=== PATIENT | female | born 1985 | race Hispanic/Latino ===

== ENCOUNTER 2016-09-24 14:18 | Emergency (ER) | payer MEDICAID ==
[2016-09-24 16:36] LABS: Bilirubin,Urine NEG (Negative); Blood,Urine NEG (Negative); Ketones,Urine NEG (Negative); Leukocyte Esterase,Urine NEG (Negative); Nitrite,Urine NEG (Negative); Protein,Urine <15 mg/dL mg/dL (Negative); RBC,Urine < 1.0 /HPF (0.0-6.0); Urobilinogen,Urine < 2.0 mg/dL (<2.0); WBC,Urine < 1.0 /HPF (0.0-6.0)
--- NOTE | 2016-09-24 21:12 | Emergency Department Report ---
ED Female HPI - General Chief complaint: Vaginal Bleeding Stated complaint: VAGINAL BLEEDING/8 WKS Time Seen by Provider: 09/24/16 21:10 Source: patient, RN notes reviewed Mode of arrival: Ambulatory Limitations: No Limitations - History of Present Illness Initial comments: This is a 30-year-old female, previously unknown to me. She is 2, para 0. Last menstrual period is July 28. Past medical history includes tubal , which was terminated with methotrexate, she does not remember the laterality. Also has a history of obesity, and polycystic ovarian syndrome. Presents to the ER with painless vaginal bleeding. Started today. Atraumatic. No irritative or obstructive urinary symptoms. Mild nausea, no vomiting. No right lower quadrant pain. No fevers or chills. No chest pain or shortness of breath. MD Complaint: vaginal bleeding -: Gradual Severity: mild Consistency: now resolved Improves with: none Worsens with: none Are you Now?: Yes Associated Symptoms: vaginal bleeding - Related Data Sexually active: Yes Home Medications Medication Instructions Recorded Confirmed Last Taken Metformin HCl [Fortamet ER] 1,000 mg PO QDAY 07/02/16 09/24/16 06/30/16 Previous Rx's Medication Instructions Recorded Last Taken Type Doxylamine/Pyridoxine HCl 1 each PO QHS PRN #30 tablet. 09/25/16 Unknown Rx [Mahamed Escalante 10-10 mg Tablet] Vit W-Ca,Fe,FA(<1 mg) 1 each PO QDAY #30 tablet 09/25/16 Unknown Rx [ Vitamins] Allergies Allergy/AdvReac Type Severity Reaction Status Date / Time Iodinated Contrast Media - Allergy Rash Verified 07/02/16 21:27 IV Dye Penicillins Allergy Hives Verified 03/13/16 01:14 ED Review of Systems ROS: Stated complaint: VAGINAL BLEEDING/8 WKS Other details as noted in HPI Constitutional: denies: fever, malaise, weakness Eyes: denies: eye discharge, vision change ENT: denies: epistaxis, congestion Respiratory: denies: cough, shortness of breath, wheezing Cardiovascular: denies: chest pain, palpitations Gastrointestinal: denies: abdominal pain, nausea, diarrhea Genitourinary: other (vaginal bleeding) Musculoskeletal: denies: back pain, arthralgia, myalgia Skin: denies: rash, lesions, pruritus Neurological: denies: headache, weakness, paresthesias ED Past Medical Hx - Past Medical History Additional medical history: Abd. pain, Gallstones, Polycystic ovarian disease - Surgical History Additional Surgical History: rt great toe surgery - Social History Smoking Status: Unknown if ever smoked Substance Use Type: None - Medications Home Medications: Home Medications Medication Instructions Recorded Confirmed Last Taken Type Metformin HCl [Fortamet ER] 1,000 mg PO QDAY 07/02/16 09/24/16 06/30/16 History Doxylamine/Pyridoxine HCl 1 each PO QHS PRN #30 tablet. 09/25/16 Unknown Rx [Diclegis Dr 10-10 mg Tablet] Vit W-Ca,Fe,FA(<1 mg) 1 each PO QDAY #30 tablet 09/25/16 Unknown Rx [ Vitamins] ED Physical Exam - General Limitations: No Limitations General appearance: alert, in no apparent distress - Head Head exam: Present: atraumatic, normocephalic - Eye Eye exam: Present: normal appearance, EOMI. Absent: nystagmus - ENT ENT exam: Present: normal exam, normal orophraynx, mucous membranes moist, normal external ear exam - Neck Neck exam: Present: normal inspection, full ROM. Absent: tenderness, meningismus - Respiratory Respiratory exam: Present: normal lung sounds bilaterally. Absent: respiratory distress, wheezes, rales, rhonchi, stridor, chest wall tenderness - Cardiovascular Cardiovascular Exam: Present: regular rate, normal rhythm, normal heart sounds. Absent: bradycardia, tachycardia, irregular rhythm, systolic murmur, diastolic murmur, rubs, gallop - GI/Abdominal GI/Abdominal exam: Present: soft, normal bowel sounds. Absent: distended, tenderness, guarding, rebound, rigid, pulsatile mass - External exam: Present: normal external exam Speculum exam: Present: normal speculum exam Bi-manual exam: Present: normal bi-manual exam, other (escorted by KEARA FITZGERALD) . Absent: cervical motion tendernes, adnexal tenderness, adnexal mass, uterine enlargement, uterine tenderness - Extremities Exam Extremities exam: Present: normal inspection, full ROM, normal capillary refill. Absent: tenderness, pedal edema, joint swelling, calf tenderness - Back Exam Back exam: Present: normal inspection, full ROM. Absent: tenderness, CVA tenderness (R), CVA tenderness (L), muscle spasm, paraspinal tenderness, vertebral tenderness - Neurological Exam Neurological exam: Present: alert, oriented X3, normal gait, other (Extraocular movements intact. Tongue midline. No facial droop. Facial sensation intact to light touch in the V1, V2, V3 distribution bilaterally. 5 and 5 strength in 4 extremities.. Sensation is intact to light touch in 4 extremities.). Absent : motor sensory deficit - Psychiatric Psychiatric exam: Present: normal affect, normal mood - Skin Skin exam: Present: warm, dry, intact, normal color. Absent: rash ED Course Vital Signs 09/24/16 09/24/16 09/24/16 14:40 21:25 21:30 Temperature 98.4 F 98.6 F Pulse Rate 84 85 Respiratory 18 20 20 Rate Blood Pressure 153/95 Blood Pressure 141/77 [Right] O2 Sat by Pulse 100 100 100 Oximetry - Reevaluation(s) Reevaluation #1: 09/25/16 00:21 Differential diagnosis: Miscarriage, ectopic , threatened miscarriage, urinary tract infection Assessment and plan: 30-year-old female with confirmed intrauterine on ultrasound, with resolved vaginal bleeding, most likely consistent with threatened miscarriage. She is afebrile with reassuring vital signs, with the exception of elevated blood pressure. She reports that she has suggested follow -up in 2 weeks. She is instructed as to the need for close outpatient follow- up. Return precautions are excessively reviewed. ED Medical Decision Making - Lab Data Result diagrams: 09/24/16 21:36 Vital Signs 09/24/16 09/24/16 09/24/16 14:40 21:25 21:30 Temperature 98.4 F 98.6 F Pulse Rate 84 85 Respiratory 18 20 20 Rate Blood Pressure 153/95 Blood Pressure 141/77 [Right] O2 Sat by Pulse 100 100 100 Oximetry Lab Results 09/24/16 09/24/16 09/24/16 Range/Units 16:06 21:35 21:36 WBC 7.5 (4.5-11.0) K/mm3 RBC 4.58 (3.65-5.03) M/mm3 Hgb 11.8 (10.1-14.3) gm/dl Hct 35.6 (30.3-42.9) % MCV 78 L (79-97) fl MCH 26 L (28-32) pg MCHC 33 (30-34) % RDW 15.7 H (13.2-15.2) % Plt Count 283 (140-440) K/mm3 HCG, Quant (0-4) mIU/mL Urine Color Yellow (Yellow) Urine Turbidity Clear (Clear) Urine pH 6.0 (5.0-7.0) Ur Specific [place] 1.008 (1.003-1.030) Urine Protein <15 mg/dl (Negative) mg/dL Urine Glucose (UA) Neg (Negative) mg/dL Urine Ketones Neg (Negative) mg/dL Urine Blood Neg (Negative) Urine Nitrite Neg (Negative) Urine Bilirubin Neg (Negative) Urine Urobilinogen < 2.0 (<2.0) mg/dL Ur Leukocyte Esterase Neg (Negative) Urine WBC (Auto) < 1.0 (0.0-6.0) /HPF Urine RBC (Auto) < 1.0 (0.0-6.0) /HPF U Epithel Cells (Auto) < 1.0 (0-13.0) /HPF Urine HCG, Qual Positive A (Negative) Blood Type A POSITIVE Antibody Screen Negative 09/24/16 Range/Units 21:36 WBC (4.5-11.0) K/mm3 RBC (3.65-5.03) M/mm3 Hgb (10.1-14.3) gm/dl Hct (30.3-42.9) % MCV (79-97) fl MCH (28-32) pg MCHC (30-34) % RDW (13.2-15.2) % Plt Count (140-440) K/mm3 HCG, Quant 24011 H (0-4) mIU/mL Urine Color (Yellow) Urine Turbidity (Clear) Urine pH (5.0-7.0) Ur Specific [place] (1.003-1.030) Urine Protein (Negative) mg/dL Urine Glucose (UA) (Negative) mg/dL Urine Ketones (Negative) mg/dL Urine Blood (Negative) Urine Nitrite (Negative) Urine Bilirubin (Negative) Urine Urobilinogen (<2.0) mg/dL Ur Leukocyte Esterase (Negative) Urine WBC (Auto) (0.0-6.0) /HPF Urine RBC (Auto) (0.0-6.0) /HPF U Epithel Cells (Auto) (0-13.0) /HPF Urine HCG, Qual (Negative) Blood Type Antibody Screen - Radiology Data Radiology results: report reviewed, image reviewed Transvaginal ultrasound demonstrates intrauterine , gestational age 7 weeks and 3 days. heartbeat 149 beats per minute. Yolk sac is present. Critical care attestation.: If time is entered above; I have spent that time in minutes in the direct care of this critically ill patient, excluding procedure time. ED Disposition Clinical Impression: Threatened miscarriage Disposition: DISCHARGED TO HOME OR SELFCARE Is pt being admited?: No Does the pt Need Aspirin: No Condition: Stable Instructions: Threatened Miscarriage (ED) Additional Instructions: Continue outpatient metformin. Take the vitamins and nausea medication as needed/directed. Please note that your blood pressure was elevated today. This should be followed up by an PURIFICATION DIRECTOR doctor within the next week to 10 days. Long-term complications of hypertension includes stroke, disability, seizures, loss of quality of life. Follow-up with an PURIFICATION DIRECTOR doctor within the next 7-10 days. Rest and avoid heavy lifting. Avoid strenuous physical activity. Avoid sexual activity until cleared by an PURIFICATION DIRECTOR doctor. Return to the ER right away with severe pain, intractable nausea or vomiting, bleeding more than 2 pads soaked through and through per hour, inability to tolerate liquid feeds. Referrals: PRIMARY CARE, [Primary Care Provider] - 3-5 Days [facility] [Provider Group] - 3-5 Days [facility] [Provider Group] - 3-5 Days [facility] [Provider Group] - 3-5 Days
[2016-09-24 22:49] LABS: Hematocrit 35.6 % (30.3-42.9); Hemoglobin 11.8 gm/dl (10.1-14.3); Mean Corpuscular HGB Conc 33 % (30-34); Mean Corpuscular Volume 78 fl (79-97); Platelet Count 283 K/mm3 (140-440); Red Blood Count 4.58 M/mm3 (3.65-5.03); Red Cell Distribution Width 15.7 % (13.2-15.2); White Blood Count 7.5 K/mm3 (4.5-11.0)
[2016-09-24 22:50] LABS: Mean Corpuscular Hemoglobin 26 pg (28-32)
--- NOTE | 2016-09-24 23:28 | Ultrasound Report ---
FINAL REPORT EXAM: US OB \T\lt; = 14 WEEKS FETUS HISTORY: vag bleed COMPARISON: None available. TECHNIQUE: Several real-time grayscale and color Doppler images were obtained. Transabdominal and transvaginal exam. FINDINGS: Uterus measures 12.6 x 5.1 x 6.0 centimeters. Right ovary is not visualized. Left ovary measures 4.4 x 4.1 x 3.7 centimeters. 2.8 centimeter left ovarian unilocular cyst which may reflect corpus luteum. Single live IUP. Estimated gestational age 7 weeks 3 days. Estimated delivery date May 10, 2017. heart rate 149 beats per minute. Yolk sac is present. IMPRESSION: Single live IUP. Estimated gestational age 7 weeks 3 days. Estimated delivery date May 10, 2017. No gross abnormality. Left ovarian cyst measuring 2.8 centimeters. This may reflect corpus luteum. Right ovary is not visualized.
--- NOTE | 2016-09-24 23:29 | Ultrasound Report ---
FINAL REPORT EXAM: US OB TRANSVAGINAL HISTORY: vag bleed COMPARISON: None available. TECHNIQUE: Several real-time grayscale and color Doppler images were obtained. Transabdominal and transvaginal exam. FINDINGS: Uterus measures 12.6 x 5.1 x 6.0 centimeters. Right ovary is not visualized. Left ovary measures 4.4 x 4.1 x 3.7 centimeters. 2.8 centimeter left ovarian unilocular cyst which may reflect corpus luteum. Single live IUP. Estimated gestational age 7 weeks 3 days. Estimated delivery date May 10, 2017. heart rate 149 beats per minute. Yolk sac is present. IMPRESSION: Single live IUP. Estimated gestational age 7 weeks 3 days. Estimated delivery date May 10, 2017. No gross abnormality. Left ovarian cyst measuring 2.8 centimeters. This may reflect corpus luteum. Right ovary is not visualized.
[2016-09-25 00:40] VITALS: BP 139/76
== END 2016-09-25 00:50 | disposition home or self-care (01) ==
LOC: ED 14:18
DX: O20.0 Threatened abortion (principal); Z3A.08 8 weeks gestation of pregnancy; Z88.0 Allergy status to penicillin; Z91.041 Radiographic dye allergy status
CPT/HCPCS: 36415; 76801; 76817; 81001; 81025; 84702; 85027; 86850; 86900; 86901; 99284

== ENCOUNTER 2016-09-25 13:40 | Emergency (ER) | payer MEDICAID ==
[2016-09-25 14:13] LABS: Basophils % (Auto) 0.3 % (0.0-1.8); Eosinophils % (Auto) 0.1 % (0.0-4.3); Hematocrit 37.1 % (30.3-42.9); Mean Corpuscular HGB Conc 32 % (30-34); Mean Corpuscular Volume 78 fl (79-97); Platelet Count 299 K/mm3 (140-440); Red Blood Count 4.78 M/mm3 (3.65-5.03); Red Cell Distribution Width 15.2 % (13.2-15.2); White Blood Count 6.2 K/mm3 (4.5-11.0)
[2016-09-25 14:20] LABS: Mean Corpuscular Hemoglobin 25 pg (28-32)
[2016-09-25 14:27] LABS: Alanine Aminotransferase 147 units/L (7-56); Albumin 3.9 g/dL (3.9-5); Albumin/Globulin Ratio 1.1 %; Alkaline Phosphatase 120 units/L (35-129); Anion Gap 19 mmol/L; BUN/Creatinine Ratio 13.33; Bilirubin,Total 1.4 mg/dL (0.1-1.2); Blood Urea Nitrogen 8 mg/dL (7-17); Calcium 9.2 mg/dL (8.4-10.2); Carbon Dioxide 24 mmol/L (22-30); Chloride 99.9 mmol/L (98-107); Glucose 124 mg/dL (65-100); Lipase 26 units/L (13-60); Sodium 139 mmol/L (137-145); Total Protein 7.6 g/dL (6.3-8.2)
[2016-09-25 15:09] LABS: Bilirubin,Urine Moderate (Negative); Blood,Urine Negative (Negative); Ketones,Urine Trace mg/dL (Negative)
[2016-09-25 15:10] LABS: Leukocyte Esterase,Urine Negative (Negative); Nitrite,Urine Negative (Negative); PH,Urine 5.5 (5.0-7.0); Protein,Urine <15 mg/dL mg/dL (Negative)
[2016-09-25 15:12] LABS: Mucus,Urine FEW /HPF
--- NOTE | 2016-09-25 20:10 | Emergency Department Report ---
ED Abdominal Pain HPI - General Chief Complaint: Abdominal Pain Stated Complaint: ABD PAIN Time Seen by Provider: 09/25/16 20:06 Source: patient, RN notes reviewed, old records reviewed Mode of arrival: Ambulatory Limitations: No Limitations - History of Present Illness Initial Comments: This is a 30-year-old female. I saw her yesterday for threatened miscarriage. Please my medical records from yesterday for the full details of her history and physical. Patient reports that after she was discharged, she went to [facility], and had not shows. She reports that shortly after consuming the spicy and creamy nachos, she developed her typical symptoms of biliary colic. They include epigastric and right upper quadrant pain. Patient has no fevers or chills. Positive nausea. No irritative or obstructive urinary symptoms. No lower abdominal pain. Reports vaginal bleeding has since resolved. Patient was seen for similar symptoms last year in June. She has been referred to general surgery multiple times, but has not followed up. Previous ultrasounds have demonstrated biliary ductal dilatation, elevated total bilirubin, elevated alkaline phosphatase, elevated liver function tests. MD Complaint: abdominal pain -: Gradual, hour(s) Location: RUQ Migration to: no migration Severity: mild Quality: aching Consistency: now resolved Improves With: medication Worsens With: eating Context: possible food poisoning Associated Symptoms: nausea. denies: chills, constipation, dysuria, hematemesis , hematochezia, melena, hematuria, anorexia, syncope - Related Data LMP (females 10-50): Home Medications Medication Instructions Recorded Confirmed Last Taken Metformin HCl [Fortamet ER] 1,000 mg PO QDAY 07/02/16 09/24/16 06/30/16 Previous Rx's Medication Instructions Recorded Last Taken Type Clindamycin [Clindamycin CAP] 300 mg PO Q6H #20 capsule 09/25/16 Unknown Rx Doxylamine/Pyridoxine HCl 1 each PO QHS PRN #30 tablet. 09/25/16 Unknown Rx [Mahamed Escalante 10-10 mg Tablet] Vit W-Ca,Fe,FA(<1 mg) 1 each PO QDAY #30 tablet 09/25/16 Unknown Rx [ Vitamins] Allergies Allergy/AdvReac Type Severity Reaction Status Date / Time Iodinated Contrast Media - Allergy Rash Verified 07/02/16 21:27 IV Dye Penicillins Allergy Hives Verified 03/13/16 01:14 ED Review of Systems ROS: Stated complaint: ABD PAIN Other details as noted in HPI Constitutional: denies: malaise Eyes: denies: vision change ENT: denies: epistaxis Respiratory: denies: cough Gastrointestinal: abdominal pain, nausea Genitourinary: denies: urgency, dysuria Musculoskeletal: denies: back pain Skin: denies: lesions Neurological: denies: weakness ED Past Medical Hx - Past Medical History Additional medical history: Abd. pain, Gallstones, Polycystic ovarian disease - Surgical History Additional Surgical History: rt great toe surgery - Social History Smoking Status: Never Smoker Substance Use Type: None - Medications Home Medications: Home Medications Medication Instructions Recorded Confirmed Last Taken Type Metformin HCl [Fortamet ER] 1,000 mg PO QDAY 07/02/16 09/24/16 06/30/16 History Clindamycin [Clindamycin CAP] 300 mg PO Q6H #20 capsule 09/25/16 Unknown Rx Doxylamine/Pyridoxine HCl 1 each PO QHS PRN #30 tablet. 09/25/16 Unknown Rx [Mahamed Escalante 10-10 mg Tablet] Vit W-Ca,Fe,FA(<1 mg) 1 each PO QDAY #30 tablet 09/25/16 Unknown Rx [ Vitamins] ED Physical Exam - General Limitations: No Limitations General appearance: alert, in no apparent distress, obese - Head Head exam: Present: atraumatic, normocephalic - Eye Eye exam: Present: normal appearance, EOMI - ENT ENT exam: Present: normal exam, normal orophraynx, mucous membranes moist, normal external ear exam - Neck Neck exam: Present: normal inspection, full ROM. Absent: tenderness - Respiratory Respiratory exam: Present: normal lung sounds bilaterally. Absent: respiratory distress, wheezes, rales, rhonchi, stridor, chest wall tenderness, accessory muscle use - Cardiovascular Cardiovascular Exam: Present: regular rate, normal rhythm, normal heart sounds. Absent: bradycardia, tachycardia, irregular rhythm, systolic murmur, diastolic murmur, rubs, gallop - GI/Abdominal GI/Abdominal exam: Present: soft, tenderness (ears minimal right upper quadrant tenderness to deep palpation. There is a negative [place] sign. There is no rebound or guarding. There is no peritoneal signs.), normal bowel sounds. Absent: distended, guarding, rebound, rigid - Extremities Exam Extremities exam: Present: normal inspection, full ROM, normal capillary refill. Absent: tenderness, pedal edema, joint swelling, calf tenderness - Back Exam Back exam: Present: normal inspection, full ROM. Absent: tenderness, CVA tenderness (R), CVA tenderness (L), muscle spasm, paraspinal tenderness, vertebral tenderness - Neurological Exam Neurological exam: Present: alert, oriented X3, normal gait, other (Extraocular movements intact. Tongue midline. No facial droop. Facial sensation intact to light touch in the V1, V2, V3 distribution bilaterally. 5 and 5 strength in 4 extremities.. Sensation is intact to light touch in 4 extremities.). Absent : motor sensory deficit - Psychiatric Psychiatric exam: Present: normal affect, normal mood - Skin Skin exam: Present: warm, dry, intact, normal color. Absent: rash ED Course Vital Signs 09/25/16 09/25/16 13:45 21:10 Temperature 98.0 F Pulse Rate 78 80 Respiratory 18 18 Rate Blood Pressure 144/76 Blood Pressure 142/72 [Left] O2 Sat by Pulse 98 98 Oximetry - Reevaluation(s) Reevaluation #1: 09/25/16 22:53 Differential diagnosis: Biliary colic, cholecystitis, transaminitis, incidental Assessment and plan: 30-year-old female who had absolutely no right upper quadrant abdominal pain or tenderness yesterday, who went home, and ate nachos, and subsequently developed classic biliary colic. Her ultrasound demonstrates chronic findings, but no evidence of acute inflammation. She has stable chronic dilatation of the common bile duct, which has been present since at least June 2016. She has nonspecific elevation in her transaminases, but they're less than on prior values, she has a normal alkaline phosphatase, and she has a slightly elevated total bilirubin. She is afebrile with reassuring vital signs, tolerating liquid feeds, and feels improved on my repeat examination. Given chronicity of findings, clinical improvement, I don't believe patient requires admission at this time. She is instructed to follow up with outpatient general surgeon. I specifically discuss her case with the general surgeon on-call, Dr. Barraza. He reported that he would see the patient the office tomorrow or the next day, and make further outpatient arrangements. He did recommend antibiotics. He reports he will make a determination and coordinate outpatient MRCP if he deems it necessary. 09/25/16 23:00 ED Medical Decision Making - Lab Data Result diagrams: 09/25/16 13:55 09/25/16 13:55 Vital Signs 09/25/16 09/25/16 13:45 21:10 Temperature 98.0 F Pulse Rate 78 80 Respiratory 18 18 Rate Blood Pressure 144/76 Blood Pressure 142/72 [Left] O2 Sat by Pulse 98 98 Oximetry Labs 09/25/16 09/25/16 09/25/16 13:55 13:55 14:53 WBC 6.2 RBC 4.78 Hgb 12.0 Hct 37.1 MCV 78 L MCH 25 L MCHC 32 RDW 15.2 Plt Count 299 Lymph % (Auto) 11.3 L [place] % (Auto) 6.9 Eos % (Auto) 0.1 Baso % (Auto) 0.3 Lymph # 0.7 L [place] # 0.4 Eos # 0.0 Baso # 0.0 Seg Neutrophils % 81.4 H Seg Neutrophils # 5.1 Sodium 139 Potassium 4.0 Chloride 99.9 Carbon Dioxide 24 Anion Gap 19 BUN 8 Creatinine 0.6 L Estimated GFR > 60 BUN/Creatinine Ratio 13.33 Glucose 124 H Calcium 9.2 Total Bilirubin 1.4 H AST 173 H ALT 147 H Alkaline Phosphatase 120 Total Protein 7.6 Albumin 3.9 Albumin/Globulin Ratio 1.1 Lipase 26 Urine Color Rebecca Urine Turbidity Hazy Urine pH 5.5 Ur Specific [place] 1.025 Urine Protein <15 mg/dl Urine Glucose (UA) Negative Urine Ketones Trace Urine Blood Negative Urine Nitrite Negative Ur Reducing Substances Negative Urine Bilirubin Moderate Urine Ictotest Positive Urine Urobilinogen 1.0 Ur Leukocyte Esterase Negative Urine WBC (Auto) 2.0 Urine RBC (Auto) 3.0 U Epithel Cells (Auto) 9.0 Amorphous Crystals Few Urine Mucus Few - Radiology Data Radiology results: report reviewed, image reviewed abdominal right upper quadrant ultrasound shows known cholelithiasis, no pericholecystic fluid, chronically dilated common bile duct, no secondary signs of acute inflammation. - Medical Decision Making extensive discussion was had with the patient regarding the importance of closer outpatient follow up with general surgery in the next 48 hours Critical care attestation.: If time is entered above; I have spent that time in minutes in the direct care of this critically ill patient, excluding procedure time. ED Disposition Clinical Impression: Biliary colic, High transaminase levels Disposition: DISCHARGED TO HOME OR SELFCARE Is pt being admited?: No Does the pt Need Aspirin: No Condition: Stable Instructions: Biliary Colic (ED) Additional Instructions: Avoid heavy and spicy foods. Take the antibiotic therapy as directed. follow up with the general surgeon within the next [address] Barraza is the local general surgeon. He is expecting you to contact his office tomorrow to arrange close follow-up. Not following up in a timely fashion may result in infection, hepatitis, and can be dangerous to yourself and to the . Return to the ER right away with new pain, worsening pain, migration of pain, fevers or chills, intractable nausea or vomiting, inability to tolerate liquid feeds. Prescriptions: Clindamycin [Clindamycin CAP] 300 mg PO Q6H #20 capsule Referrals: PRIMARY CARE, [Primary Care Provider] - 3-5 Days SHELLEY BARRAZA MD [Staff Physician] - 3-5 Days
--- NOTE | 2016-09-25 21:05 | Ultrasound Report ---
FINAL REPORT EXAM: US ABDOMEN LIMITED HISTORY: abd pain hx of gall stones COMPARISON: Abdominal ultrasound from June 2016. TECHNIQUE: Several real-time grayscale and color Doppler images were obtained. FINDINGS: Visualized aorta is normal in caliber. The right kidney measures 11.8 centimeters in length. No gross focal renal lesion or hydronephrosis. Cholelithiasis. No gallbladder wall thickening or pericholecystic fluid. Mild fatty infiltration of the liver. The common bile duct measures up to 9-10 millimeters. On prior exam the common bile duct measures up to 10-11 millimeters. No obstructive lesion identified along the course of the common bile duct. Visualized pancreas is grossly unremarkable. IMPRESSION: Cholelithiasis without secondary signs of acute inflammation. Stable dilatation the common bile duct measuring 10 millimeters. Correlation with bilirubin suggested.
[2016-09-25] MEDS ORDERED: ZOFRAN IV ONE (21:55)
[2016-09-25] MEDS ORDERED: MORPHINE IV ONE (21:55)
[2016-09-25] MEDS ORDERED: D5/0.45NS 1,000 ML IV SCH (22:00)
[2016-09-25 22:30] VITALS: BP 142/72
== END 2016-09-25 23:46 | disposition home or self-care (01) ==
LOC: ED 13:40
DX: K80.50 Calculus of bile duct without cholangitis or cholecystitis without obstruction (principal); R74.0 Nonspecific elevation of levels of transaminase and lactic acid dehydrogenase [LDH]; Z88.0 Allergy status to penicillin; Z91.041 Radiographic dye allergy status
CPT/HCPCS: 36415; 76705; 80053; 81001; 83690; 85025; 96361; 96374; 96375; 99284; J2270; J2405

== ENCOUNTER 2016-09-26 18:18 | Emergency (ER) | payer MEDICAID ==
[2016-09-26 21:28] LABS: Basophils % (Auto) 0.4 % (0.0-1.8); Eosinophils % (Auto) 0.7 % (0.0-4.3); Hematocrit 35.7 % (30.3-42.9); Hemoglobin 11.5 gm/dl (10.1-14.3); Mean Corpuscular HGB Conc 32 % (30-34); Mean Corpuscular Volume 79 fl (79-97); Platelet Count 309 K/mm3 (140-440); Red Blood Count 4.52 M/mm3 (3.65-5.03); Red Cell Distribution Width 15.7 % (13.2-15.2); White Blood Count 8.9 K/mm3 (4.5-11.0)
[2016-09-26 21:31] LABS: Mean Corpuscular Hemoglobin 25 pg (28-32)
[2016-09-27 03:04] VITALS: BP 121/63
[2016-09-27] MEDS ORDERED: NORCO 5/325 PO ONE (03:35)
--- NOTE | 2016-09-27 03:40 | Emergency Department Report ---
ED HPI - General Chief complaint: Vaginal Bleeding Stated complaint: MISCARRIAGE Time Seen by Provider: 09/27/16 03:12 Source: patient, family Mode of arrival: Ambulatory Limitations: No Limitations - History of Present Illness Initial comments: This is a 30-year-old female who reports G-tube is P0 Ab1 due to ectopic . She is 7 weeks and 5 days by ultrasound done 2 nights ago. This is actually her third day in a row coming to the emergency department. She came to nights ago due to sensation of not feeling like she was . She had workup demonstrating hormone levels in the appropriate range as well as a normal IUP by ultrasound. She had no other specific complaints at time. HEENT back yesterday to the ED due to right upper quadrant tenderness. She was noted to have some gallstones and biliary colic. She returns today due to moderate amount of vaginal bleeding today she describes it being less than a period but persists for the last 12 hours. She denies any associated pain with this. Eyes any dysuria denies any vaginal discharge otherwise. MD Complaint: vaginal bleeding Onset/Timin -: Sudden, days(s) Radiation: none Severity: mild Consistency: constant Improves with: none Worsens with: none Associated symptoms: abdominal pain (right upper quadrant from gallbladder.) - Related Data Home Medications Medication Instructions Recorded Confirmed Last Taken Metformin HCl [Fortamet ER] 1,000 mg PO QDAY 07/02/16 09/27/16 06/30/16 Previous Rx's Medication Instructions Recorded Last Taken Type Clindamycin [Clindamycin CAP] 300 mg PO Q6H #20 capsule 09/25/16 Unknown Rx Doxylamine/Pyridoxine HCl 1 each PO QHS PRN #30 tablet. 09/25/16 Unknown Rx [Mahamed Escalante 10-10 mg Tablet] Vit W-Ca,Fe,FA(<1 mg) 1 each PO QDAY #30 tablet 09/25/16 09/26/16 Rx [ Vitamins] HYDROcodone/APAP 5-325 [[place] 1 each PO Q6HR PRN #20 tablet 09/27/16 Unknown Rx 5-325 mg TAB] Allergies Allergy/AdvReac Type Severity Reaction Status Date / Time Iodinated Contrast Media - Allergy Rash Verified 07/02/16 21:27 IV Dye Penicillins Allergy Hives Verified 03/13/16 01:14 ED Review of Systems ROS: Stated complaint: MISCARRIAGE Other details as noted in HPI Constitutional: denies: chills, fever Eyes: denies: eye pain, eye discharge, vision change ENT: denies: ear pain, throat pain Respiratory: denies: cough, shortness of breath, wheezing Cardiovascular: denies: chest pain, palpitations Endocrine: no symptoms reported Gastrointestinal: abdominal pain. denies: nausea, diarrhea Genitourinary: other (vaginal bleeding). denies: urgency, dysuria, discharge Musculoskeletal: denies: back pain, joint swelling, arthralgia Skin: denies: rash, lesions Neurological: denies: headache, weakness, paresthesias Psychiatric: denies: anxiety, depression Hematological/Lymphatic: denies: easy bleeding, easy bruising ED Past Medical Hx - Past Medical History Previous Medical History?: Yes Additional medical history: Abd. pain, Gallstones, Polycystic ovarian disease miscarriage - Surgical History Past Surgical History?: Yes Additional Surgical History: rt great toe surgery - Social History Smoking Status: Never Smoker Substance Use Type: None - Medications Home Medications: Home Medications Medication Instructions Recorded Confirmed Last Taken Type Metformin HCl [Fortamet ER] 1,000 mg PO QDAY 07/02/16 09/27/16 06/30/16 History Clindamycin [Clindamycin CAP] 300 mg PO Q6H #20 capsule 09/25/16 09/27/16 Unknown Rx Doxylamine/Pyridoxine HCl 1 each PO QHS PRN #30 tablet. 09/25/16 09/27/16 Unknown Rx [Mahamed Dr 10-10 mg Tablet] Vit W-Ca,Fe,FA(<1 mg) 1 each PO QDAY #30 tablet 09/25/16 09/27/1609/26 Rx [ Vitamins] HYDROcodone/APAP 5-325 [[place] 1 each PO Q6HR PRN #20 tablet 09/27/16 Unknown Rx 5-325 mg TAB] ED Physical Exam - General Limitations: No Limitations General appearance: alert, in no apparent distress, obese - Head Head exam: Present: atraumatic, normocephalic - Eye Eye exam: Present: normal appearance - ENT ENT exam: Present: mucous membranes moist - Neck Neck exam: Present: normal inspection - Respiratory Respiratory exam: Present: normal lung sounds bilaterally. Absent: respiratory distress - Cardiovascular Cardiovascular Exam: Present: regular rate, normal rhythm. Absent: systolic murmur, diastolic murmur, rubs, gallop - GI/Abdominal GI/Abdominal exam: Present: soft, tenderness (RUQ), normal bowel sounds. Absent : guarding, rebound - Bi-manual exam: Present: uterine enlargement (cw dates), other (long closed thick cervix. Small amount of bright red blood noted on the glove.). Absent: cervical motion tendernes, adnexal tenderness, uterine tenderness - Extremities Exam Extremities exam: Present: normal inspection - Back Exam Back exam: Present: normal inspection - Neurological Exam Neurological exam: Present: alert, oriented X3 - Psychiatric Psychiatric exam: Present: normal affect, normal mood - Skin Skin exam: Present: warm, dry, intact, normal color. Absent: rash ED Course Vital Signs 09/26/16 09/27/16 09/27/16 20:18 03:02 04:05 Temperature 99.1 F 98.1 F Pulse Rate 75 71 Respiratory 16 18 20 Rate Blood Pressure 147/83 Blood Pressure 121/63 [Left] O2 Sat by Pulse 100 99 Oximetry - Reevaluation(s) Reevaluation #1: 09/27/16 06:19 Bedside ultrasound was performed. I was again able to demonstrate an IUP with heart tones in the once 160s. I did inform the patient that though I could see heart tones her amount of bleeding and persistence of bleeding is concerning for possible threatened miscarriage. Repeat hormone levels today are appropriately elevated compared to 2 days ago. I did give the patient prescription for repeat hormones to be done in 3 days' time. She is not having any lower abdominal pain with this. Her only abdominal pain is due to her biliary colic. I see no other precipitating or concerning factors associated with her. She has OB follow-up. I encouraged her to try to bump up at appointment. ED Medical Decision Making - Lab Data Result diagrams: 09/26/16 20:38 Critical care attestation.: If time is entered above; I have spent that time in minutes in the direct care of this critically ill patient, excluding procedure time. ED Disposition Clinical Impression: Threatened miscarriage in early Disposition: DISCHARGED TO HOME OR SELFCARE Is pt being admited?: No Does the pt Need Aspirin: No Condition: Stable Instructions: Threatened Miscarriage (ED) Additional Instructions: Your hormone levels 2 days ago were [address]. [place] [address]012 today. Get the repeat hcg test done on . Your hormone levels should go up at least several thousand by then. If your hormone levels are dropping then this means you will miscarry. If they are rising and you stop bleeding then this is a good sign. Return to the ED if you have worsening pains or severe bleeding. Prescriptions: HYDROcodone/APAP 5-325 [[place] 5-325 mg TAB] 1 each PO Q6HR PRN #20 tablet PRN Reason: Pain Referrals: PRIMARY CARE, [Primary Care Provider] - 3-5 Days Time of Disposition: 03:40
[2016-09-27 03:49] LABS: Bacteria,Urine 1+ /HPF (Negative); Bilirubin,Urine NEG (Negative); Blood,Urine LG (Negative); Ketones,Urine 20 mg/dL (Negative); Leukocyte Esterase,Urine NEG (Negative); Mucus,Urine FEW /HPF; Nitrite,Urine NEG (Negative); Protein,Urine <15 mg/dL mg/dL (Negative); Uric Acid Crystals,Urine 1+; Urobilinogen,Urine < 2.0 mg/dL (<2.0)
== END 2016-09-27 04:54 | disposition home or self-care (01) ==
LOC: ED 18:18
DX: O20.0 Threatened abortion (principal); Z3A.01 Less than 8 weeks gestation of pregnancy
CPT/HCPCS: 36415; 81001; 84702; 85025; 86850; 86900; 86901; 99283

== ENCOUNTER 2016-09-29 09:15 | Outpatient (CLI) | payer MEDICAID | END 2016-09-29 09:16 | disposition home or self-care (01) | LOC: LAB 09:15 | PROVIDERS: ATTEND Emergency Medicine | DX: O20.0 Threatened abortion (principal); Z3A.00 Weeks of gestation of pregnancy not specified | CPT/HCPCS: 36415; 84702 ==

== ENCOUNTER 2016-12-21 18:43 | Outpatient (CLI) | payer OTHER, MEDICAID ==
[2016-12-21] MEDS ORDERED: LACTATED RINGERS 500 ML IV ONE (19:12)
[2016-12-21 19:25] VITALS: BP 106/49
[2016-12-21 20:07] LABS: Bilirubin,Urine NEG (Negative); Blood,Urine NEG (Negative); Ketones,Urine NEG (Negative); Leukocyte Esterase,Urine NEG (Negative); Mucus,Urine FEW /HPF; Nitrite,Urine NEG (Negative); Protein,Urine <15 mg/dL mg/dL (Negative); Urobilinogen,Urine < 2.0 mg/dL (<2.0)
--- NOTE | 2016-12-21 21:41 | Ultrasound Report ---
FINAL REPORT EXAM: US OB \T\gt; = 14 WEEKS FETUS HISTORY: fall COMPARISONS: 09/24/2016, 09/25/2016 FINDINGS: Limited transabdominal 2nd trimester ultrasound Single living intrauterine in breech presentation with recorded cardiac activity of 135 beats per minute. Anterior placenta without focal abnormality. The inferior placental tip is well away from the region of the internal cervical os. Subjectively normal amniotic fluid volume. The cervix appears closed and measures 5 centimeters in length. Imaged portion of the anatomy is grossly unremarkable. The brain, four-chamber heart, and abdominal umbilical cord insertion are specifically suboptimally visualized. Biparietal diameter is 4.8 cm. Head circumference is 18.2 cm. Abdominal circumference is 15.7 cm. Femoral length is 3.1 cm. Composite measurements correspond to estimated gestational age of 20 weeks 3 days, which is concordant with prior established dating. IMPRESSION: Single living intrauterine without evident acute complication, as detailed above. Consider additional imaging for worsening/persistent symptoms.
== END 2016-12-21 21:55 | disposition home or self-care (01) ==
LOC: TRG 18:43
PROVIDERS: ATTEND Obstetrics & Gynecology
DX: O32.1XX0 Maternal care for breech presentation, not applicable or unspecified (principal); O47.02 False labor before 37 completed weeks of gestation, second trimester; Z91.81 History of falling; Z3A.20 20 weeks gestation of pregnancy
CPT/HCPCS: 59025; 76805; 81001

== ENCOUNTER 2020-09-10 07:57 | Outpatient (CLI) | payer MEDICAID ==
[2020-09-10 08:59] LABS: Blood Urea Nitrogen 13 mg/dL (7-17); Calcium 9.7 mg/dL (8.4-10.2); Hemolysis Index 0
[2020-09-10] MEDS ORDERED: NITROGLYCERIN 0.4 MG TAB SUBL SL ONE (09:00)
[2020-09-10 09:08] LABS: BUN/Creatinine Ratio 19
[2020-09-10] MEDS ORDERED: ATROPINE 0.1% (1 MG/10 ML) CARDIAC SYRINGE ONE (09:22)
[2020-09-10] MEDS ORDERED: METOPROLOL TARTRATE 5 MG/5 ML INJ IV ONE ×2 (09:24→11:16)
[2020-09-10] MEDS ORDERED: METOPROLOL TARTRATE 50 MG TAB PO SCH (10:00)
[2020-09-10 10:45] VITALS: BP 115/65
--- NOTE | 2020-09-10 12:40 | Cat Scan Report ---
CT angio heart stru/morph/func INDICATION: abnormal stress test, cp. TECHNIQUE: Axial imaging was performed through the heart after IV administration of 100 mL Visipaque 320 contras t. 3 plane MIP reformats were produced. All CT scans at this location are performed using CT dose red uction for ALARA by means of automated exposure control. COMPARISON: None available. FINDINGS: Image quality is degraded by quantum mottle artifact. RIGHT CORONARY ARTERY: No significant abnormality. LEFT CORONARY ARTERY: No significant abnormality. LEFT CIRCUMFLEX: No significant abnormality. LAD:No significant abnormality. POSTERIOR DESCENDING ARTERY:No significant abnormality. AORTA: No significant abnormality. PULMONARY ARTERIES:No significant abnormality. HEART:No significant abnormality. MEDIASTINUM:No significant abnormality. LUNGS:No significant abnormality. BONES:No significant abnormality. ADDITIONAL FINDINGS:None. IMPRESSION: 1. No significant abnormality is identified. However, image quality is degraded by artifact. Signer Name: Roque Ambrocio MD Signed: 09/10/2020 12:33 PM Workstation Name: [id number]
== END 2020-09-10 07:58 | disposition home or self-care (01) ==
LOC: CATHLABREC 07:57
PROVIDERS: ATTEND Internal Medicine Cardiovascular Disease
DX: R07.89 Other chest pain (principal); R94.39 Abnormal result of other cardiovascular function study
CPT/HCPCS: 36415; 75574; 80048; Q9967; J0461

== ENCOUNTER 2021-02-01 16:49 | Emergency (ER) | payer MEDICAID ==
[2021-02-01 18:46] VITALS: BP 114/72
--- NOTE | 2021-02-01 20:37 | Emergency Department Report ---
ED Lower Extremity HPI - General Chief Complaint: Extremity Injury, Lower Stated Complaint: LT KNEE PAINS Time Seen by Provider: 02/01/21 20:33 Source: patient Mode of arrival: Wheelchair Limitations: No Limitations - History of Present Illness Initial Comments: Patient presents to the ER today with complaints of left knee pain. Patient states that she was doing jumping jacks with her this morning and when she landed she felt a pop in her left knee. Since then she has been having increasing pain and swelling to the left knee. She reports difficulty moving the knee as well as walking due to the pain. She denies any prior issues to the left knee in the past. She reports no other symptoms at this time. Complaint: knee injury -: Sudden (this morning) - Related Data Home Medications Medication Instructions Recorded Confirmed Last Taken Metformin HCl [Fortamet ER] 1,500 mg PO BID 07/02/16 09/10/20 09/06/20 1500 AtorvaSTATin [Lipitor] 20 mg PO QHS 09/10/20 09/10/20 09/09/20 20 mg Cholecalciferol (Vitamin D3) [Baby 15 ml PO 1XW 09/10/20 09/10/20 09/07/20 Vitamin D3] 1 tab Ferrous Sulfate [Iron 325 MG] 325 mg PO DAILY 09/10/20 09/10/20 09/09/20 1 tab Previous Rx's Medication Instructions Recorded Last Taken Type Ibuprofen [Motrin] 800 mg PO Q8HR PRN #30 tablet 02/01/21 Unknown Rx Allergies Allergy/AdvReac Type Severity Reaction Status Date / Time Iodinated Contrast Media Allergy Rash Verified 07/02/16 21:27 [Iodinated Contrast Media - IV Dye] Penicillins Allergy Hives Verified 03/13/16 01:14 ED Review of Systems ROS: Stated complaint: LT KNEE PAINS Other details as noted in HPI Comment: All other systems reviewed and negative Musculoskeletal: joint swelling, arthralgia ED Past Medical Hx - Past Medical History Previous Medical History?: Yes Hx Hypertension: No Hx Heart Attack/AMI: No Hx Diabetes: Yes Hx Deep Vein Thrombosis: No Hx Renal Disease: No Hx Sickle Cell Disease: No Hx Seizures: No Hx Asthma: No Hx COPD: No Hx HIV: No Additional medical history: Abd. pain, Gallstones, Polycystic ovarian syndrome, miscarriage - Surgical History Past Surgical History?: Yes Hx Coronary Stent: No Hx Pacemaker: No Additional Surgical History: rt great toe surgery. - Social History Smoking Status: Never Smoker - Medications Home Medications: Home Medications Medication Instructions Recorded Confirmed Last Taken Type Metformin HCl [Fortamet ER] 1,500 mg PO BID 07/02/16 09/10/20 09/06/20 History 1500 AtorvaSTATin [Lipitor] 20 mg PO QHS 09/10/20 09/10/20 09/09/20 History 20 mg Cholecalciferol (Vitamin D3) [Baby 15 ml PO 1XW 09/10/20 09/10/20 09/07/20 History Vitamin D3] 1 tab Ferrous Sulfate [Iron 325 MG] 325 mg PO DAILY 09/10/20 09/10/20 09/09/20 History 1 tab Ibuprofen [Motrin] 800 mg PO Q8HR PRN #30 tablet 02/01/21 Unknown Rx ED Physical Exam - General Limitations: No Limitations General appearance: alert, in no apparent distress, obese - Head Head exam: Present: atraumatic, normocephalic, normal inspection - Eye Eye exam: Present: normal appearance, PERRL, EOMI Pupils: Present: normal accommodation - ENT ENT exam: Present: normal exam, mucous membranes moist - Cardiovascular Cardiovascular Exam: Present: regular rate, normal rhythm, normal heart sounds - Expanded Lower Extremity Exam Left Knee exam: Present: normal inspection, tenderness, swelling (Mild). Absent: full ROM (Flexion reduced due to pain), abrasion, laceration, ecchymosis, deformity, crepidus, dislocation, erythema Gait: Positive: not tested/not observed - Neurological Exam Neurological exam: Present: alert, oriented X3, CN II-XII intact ED Course Vital Signs 02/01/21 18:45 Temperature 98.1 F Pulse Rate 88 Respiratory 12 Rate Blood Pressure 114/72 [Right] O2 Sat by Pulse 100 Oximetry ED Lower Extremity MDM - Radiology Data Radiology results: report reviewed Patient: KJ DANIELS MR#: [id number] [id number] : 1985 Acct:[id number] Age/Sex: 35 / F ADM Date: 02/01/21 Loc: ED Attending Dr: Ordering Physician: MUNIR CABRALES Date of Service: 02/01/21 Procedure(s): XR knee 3V LT Accession Number(s): [id number] cc: MUNIRACOSTA DAVISTOM Davis Time In Minutes: LEFT KNEE 4 VIEW(S) INDICATION / CLINICAL INFORMATION: knee injury/pain COMPARISON: None available. FINDINGS: BONES / JOINT(S): No acute fracture or subluxation. No significant arthritis. SOFT TISSUES: Small suprapatellar knee joint effusion. ADDITIONAL FINDINGS: None. Signer Name: Jose Kelly MD Signed: 02/01/2021 9:12 PM Workstation Name: [id number] Transcribed By: Dictated By: JOSE KELLY Electronically Authenticated By: JOSE KELLY Signed Date/Time: 02/01/212111 DD/ 10 TD/TT: Critical care attestation.: If time is entered above; I have spent that time in minutes in the direct care of this critically ill patient, excluding procedure time. ED Disposition Clinical Impression: Knee sprain, Knee effusion, left Disposition: DC-01 TO HOME OR SELFCARE Is pt being admited?: No Does the pt Need Aspirin: No Condition: Stable Instructions: Knee Effusion, How to Use Cold Therapy, [id number], Elastic Bandage and RICE Therapy, Knee Sprain, Adult Additional Instructions: Recommend that you for the rest, ice, and elevation instructions letter in your discharge instructions. Take the Motrin as prescribed to help with the pain and swelling. I recommend that you follow-up with pr specialist in the next 1 week specially if your symptoms persist. Return to the ER if your symptoms changes or worsens in any way. Prescriptions: Ibuprofen [Motrin] 800 mg PO Q8HR PRN #30 tablet PRN Reason: Pain Referrals: JOANNE ROBERSON MD [Staff Physician] - 3-5 Days Time of Disposition: 21:33
--- NOTE | 2021-02-01 21:16 | XRay Report ---
LEFT KNEE 4 VIEW(S) INDICATION / CLINICAL INFORMATION: knee injury/pain COMPARISON: None available. FINDINGS: BONES / JOINT(S): No acute fracture or subluxation. No significant arthritis. SOFT TISSUES: Small suprapatellar knee joint effusion. ADDITIONAL FINDINGS: None. Signer Name: Jose Wade MD Signed: 02/01/2021 9:12 PM Workstation Name: [id number]
== END 2021-02-01 22:30 | disposition home or self-care (01) ==
LOC: ED 16:49
DX: S83.92XA Sprain of unspecified site of left knee, initial encounter (principal); E11.9 Type 2 diabetes mellitus without complications; Z98.890 Other specified postprocedural states; Z79.1 Long term (current) use of non-steroidal anti-inflammatories (NSAID); Z79.899 Other long term (current) drug therapy; Z88.0 Allergy status to penicillin; Z88.8 Allergy status to other drugs, medicaments and biological substances; X58.XXXA Exposure to other specified factors, initial encounter; Y93.89 Activity, other specified; Y92.89 Other specified places as the place of occurrence of the external cause; Y99.8 Other external cause status